=== PATIENT | male | born 1950 | race Caucasian/White ===

== ENCOUNTER 2016-09-01 05:15 | Inpatient (IN) | payer BC, MEDICARE ==
[~2016-09-01 05:15] MED LIST: AMLODIPINE BESYL5 MG PO; ASPIRIN EC81 MG PO; CARDURA4 M1 PO; CPAP; ELIQUIS5 M1 PO; METAMUCIL SUGA283 GM PO; MULTI-DAY VITA1 EAC1 PO; PAXIL10 M1 PO; PRALUENT P75 MG/1 ML SC; PRINIVIL20 M1 PO; SOTALOL120 M1 PO; TENORMIN25 M1 PO; TRIAMTERENE-HC1 EAC3 PO; ZYLOPRIM100 M1 PO
[2016-09-02 06:12] LABS: HCT-HEMATOCRIT 28.9 % (36.0-53.5); HGB-HEMOGLOBIN 9.3 gm/dl (13.5-17.0); IMMATURE GRANULOCYTES ABSOLUTE 0.04 tho/cmm (0-0.03); IMMATURE GRANULOCYTES PERCENT 0.3 % (0-0.3); LYMPH % 12.1 % (20-45); LYMPH ABSOLUTE COUNT 1.8 tho/cmm (0.8-4.5); MCH (MEAN CORPUSCULAR HGB) 28.8 pg (28.0-32.0); MCHC MEAN CORPUSCULAR HGB CONC 32.2 % (32.0-36.0); MCV (MEAN CELL VOLUME) 89.5 fl (82.0-96.0); MEAN PLATELET VOLUME 9.8 cmc (9.4-12.4); MONO % 8.1 % (0-12); MONOCYTE ABSOLUTE COUNT 1.2 tho/cmm (0.0-1.2); NEUTROPHIL ABSOLUTE COUNT 11.8 tho/cmm (1.6-8.0); NEUTROPHIL-AUTOMATED 11.8 tho/cmm (1.6-8.0); NEUTROPHILS % 79.5 % (40-80); PLATELET COUNT 199 tho/cmm (150-450); RED BLOOD COUNT 3.23 mil/cmm (4.40-5.70); RED CELL DISTRIBUTION WIDTH 15.3 % (12.4-16.4); WHITE BLOOD COUNT 14.8 tho/cmm (4.0-10.0)
[2016-09-03] MEDS ORDERED: ROXICODONE5 M2 PO (09:56)
[2016-09-03] MEDS ORDERED: ULTRAM50 M1 PO (09:57)
[2016-09-03] MEDS ORDERED: TYLENOL325 M2 PO (09:58)
--- NOTE | 2016-09-03 13:11 | NUR ---
0903- 09/02/16- PT CALLED NURSE INTO ROOM STATING HE HAD BLURRED VISION. SEE VITALS. NO WEAKNESS/NUMBNESS/TINGLING NOTED. SMILE/PUPILS, LAMI CHECKS STRONG AND EQUAL. DISCUSSED WITH DR MEEKS'S NURSE- NO ORDERS GIVEN. 1050- VISION HAD COMPLETELY CLEARED UP.
== END 2016-09-03 19:40 | DRG 470 ==
LOC: SHSC 05:15 → ORE 07:56 → PACU 10:14 → 5EA 11:45
PROVIDERS: Physician Assistant; ADMIT Orthopaedic Surgery
PROC: 0SRB04A Replacement of Left Hip Joint with Ceramic on Polyethylene Synthetic Substitute, Uncemented, Open Approach (ICD-10-PCS; principal; 2016-09-01)
DX: M16.12 Unilateral primary osteoarthritis, left hip (principal); M10.4 Other secondary gout; I10 Essential (primary) hypertension; I25.10 Atherosclerotic heart disease of native coronary artery without angina pectoris; H26.9 Unspecified cataract; F32.9 Major depressive disorder, single episode, unspecified; E66.9 Obesity, unspecified; G47.30 Sleep apnea, unspecified; Z79.82 Long term (current) use of aspirin; Z68.37 Body mass index [BMI] 37.0-37.9, adult
CPT/HCPCS: C1776; J0171; J0690; J1885; J2270; J2795; J3010